=== PATIENT | female | born 1985 | race Caucasian/White ===

== ENCOUNTER 2016-06-01 12:00 | Emergency (ER) | payer BC ==
[2016-06-01] MEDS ORDERED: IPRATROPIUM/ALBUTEROL SULFATE 3 ML NEB NEB ONE (12:30)
[2016-06-01 12:41] VITALS: RESP 16; TEMP 98.1
--- NOTE | 2016-06-01 13:01 | PDOC ---
Upper Respiratory HPI - General Chief Complaint: Respiratory Complaint Stated Complaint: "Can't Breath" Date Seen by Provider: 06/01/16 Time Seen by Provider: 12:35 Source: POSITIVE: Patient Exam Limitations: POSITIVE: No limitations Nurse's Notes Reviewed & Considered: Yes - History of Present Illness Initial Comments: The patient is a 31-year-old female who presents to the emergency department with cough and shortness of breath. She states she had onset of upper respiratory symptoms approximately 2 days ago including congestion, chills and cough which was initially productive and is now dry. She continues to have a wheezy cough as well as increase shortness of breath. She denies any associated chest pain, nausea or vomiting, pain or swelling in her legs. She does have generalized body aches. 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 She does smoke however denies any known asthma or COPD. She is on medication for blood pressure and depression. - Patient Home Medications Home Medications: Home Medications Azithromycin [Zithromax] 250 mg PO DAILY #6 tab 06/01/16 FLUoxetine HCl [PROzac] 20 mg PO DAILY 06/01/16 Hydrochlorothiazide 12.5 mg PO DAILY 06/01/16 Lisinopril 40 mg PO DAILY 06/01/16 Omeprazole 20 mg PO DAILY 06/01/16 guaiFENesin/Codeine Liquid [Robitussin AC Liquid] 5 ml PO Q6H PRN #60 ml predniSONE Tab [Deltasone Tab] 40 mg PO DAILY #10 tab 06/01/16 - Patient Allergies Allergies/Adverse Reactions: Allergies Allergy/AdvReac Type Severity Reaction Status Date / Time No Known Allergies Allergy Unverified 06/01/16 12:41 Past Medical History - heen HEENT History: Denies History Cardiovascular History: Hypertension Respiratory History: Denies History Gastrointestinal History: Denies History Genitourinary History: Denies History Endocrine History: Type 2 Diabetes (diet), Type 2 Diabetes (oral) Musculoskeletal History: Denies History Prosthesis or Implant: No Neurological History: Denies History Blood Disorders: Denies History Psychiatric History: Denies History History of Sexually Transmitted Diseases: No Female Reproductive History: Denies History LMP: 05/29/16 Obstetrical History: Denies History Cancer History: Denies History In Past Year Been Physically Harmed or Verbally Threatened: No History of MDRO: No History of Other Communicable Diseases: No Tobacco Use: Current Every Day Smoker Alcohol Use: None Substance Use Type: None Previous Surgical History: No Significant Family History: No pertinent family hx Past Medical History Reviewed: Reviewed - No Changes ROS - Limitations ROS Limitations: No Limitations Constitution: REPORTS: Chills. DENIES: Fever Cardiovascular: DENIES: Chest Pain, Heart Racing, Heart Palpitations, Edema Respiratory: REPORTS: Cough Non Productive, Cough Productive, Shortness Of Breath, Wheezing, Other (She does have some pain in her lower ribs with coughing ) Neurological: REPORTS: Headache. DENIES: Dizziness, Numbness, Weakness Gastrointestinal: DENIES: Abdominal Pain, Nausea, Vomitting, Diarrhea Musculoskeletal: REPORTS: Muscle Aches Eyes: REPORTS: Denies Symptoms ENT: REPORTS: Congestion (Has improved over the last 24 hours). DENIES: Sore Throat Skin: DENIES: Rash Upper Respiratory/Fever Exam - General Appearance General Appearance: REPORTS: Alert, Cooperative, No Acute Distress - HEENT HEENT: POSITIVE: Head Inspection Nml, Eyes Inspection Nml, Ears Inspection Nml, Pharynx Inspect. Nml - Neck Neck: REPORTS: Normal Inspection. DENIES: Lymphadenopathy - Respiratory Respiratory: REPORTS: No Respiratory Distress, Other (She does have diminished breath sounds bilaterally, no audible rhonchi or wheezes however she does have a very wheezy cough) - Abdomen Abdomen: Soft: (All Quadrants), Denies Tenderness: (All Quadrants), No Distention: (All Quadrants) - Cardiovascular Cardiovascular: REPORTS: Regular Rate and Rhythm, Heart Sounds Normal - Skin Skin: REPORTS: Intact, No Rash - Extremities Extremity: Normal ROM: (All Extremities), Normal Inspection: (All Extremities) - Neurological / Psychological Neurological: POSITIVE: Other (No focal neurologic deficits) Upper Resp/Fever Progress - Results Reviewed by me Xrays/CTs/US Reviewed by me: Yes Radiology Findings: Chest x-ray shows normal heart size and normal lung chowdhury. Lab Results Reviewed: Yes (influenza screen is negative) - Patient's Progress MDM / ED Course: She was given a DuoNeb. This did not really result in any subjective improvement. Vital signs remained stable. At this time the patient will be treated for bronchitis with Zithromax. She was also given a 5 day course of prednisone 40 mg daily. She was given Robitussin with codeine as needed for cough. She is advised return to the emergency room if she develops increased shortness of breath, any worsening or change in symptoms. Follow-up with primary care in 3-5 days. - Consult Counseled: POSITIVE: Patient, RE: Lab Results, RE: Radiology Results, RE: DX, RE : Need for F/U Patient Care Time - Estimated PCT Patient Care Time (In Minutes): 20 Vital Signs - Recent Vital Signs Vital Signs: Vital Signs (Last 8 hours) Temp Pulse Resp BP Pulse Ox 06/01/16 12:32 98.1 F 102 H 16 129/97 90 - VS Reviewed Vital Signs Reviewed: Yes Discharge Clinical Impression: Bronchitis Condition: Stable Prescriptions / Orders: predniSONE Tab [Deltasone Tab] 40 mg PO DAILY #10 tab guaiFENesin/Codeine Liquid [Robitussin AC Liquid] 5 ml PO Q6H PRN #60 ml PRN Reason: Cough Azithromycin [Zithromax] 250 mg PO DAILY #6 tab Patient Instructions Given at Discharge: Acute Bronchitis (ED) Additional Instructions: The influenza test was negative and the chest x-ray did not show any obvious pneumonia. You have been started on Zithromax 2 and 50 mg, 2 tablets today followed by 1 tablet daily for 4 days for treatment of bronchitis. In addition you have been given prednisone 20 mg tablets, 2 tablets daily for 5 days to help decrease the inflammation in your lungs. You've also been prescribed Robitussin with codeine which he can take 1 teaspoon every 6 hours as needed for cough. Return to the emergency room if increased shortness of breath, any worsening or change in symptoms. Follow-up with primary care if no improvement in 3-5 days. Follow Up With: JAQUAN TESFAYE [Primary Care Provider] -
--- NOTE | 2016-06-02 11:40 | DI ---
History: Cough Procedure: 2 view study. Prior exam: None. Findings: Lungs are clear. Dorsal spine is intact. No cardiac enlargement. Impression: Unremarkable two-view chest x-ray
== END 2016-06-01 14:25 | disposition home or self-care (01) ==
LOC: ER 12:00
DX: J20.9 Acute bronchitis, unspecified (principal); R05 Cough; E11.9 Type 2 diabetes mellitus without complications; F17.210 Nicotine dependence, cigarettes, uncomplicated
CPT/HCPCS: 71020; 87804; 94640; 99283 ×2; J7620